=== PATIENT | female | born 1965 | race Caucasian/White ===

== ENCOUNTER → 2017-11-04 | Outpatient (CLI) | payer BC, MEDICARE | END | disposition home or self-care (01) | LOC: GMAL 10:35 | PROVIDERS: ATTEND Family Medicine | DX: Z00.01 Encounter for general adult medical examination with abnormal findings (principal) ==

== ENCOUNTER → 2017-11-13 | Outpatient (CLI) | payer BC, MEDICARE ==
--- NOTE | 2017-11-14 17:33 | US ---
EXAM DESCRIPTION: Thyroid CLINICAL HISTORY: 52 years, Female, THYROID NODULE COMPARISON: June 26, 2014 FINDINGS: Right lobe 6.0 x 2.3 x 1.8 cm. Left lobe 4.7 x 1.5 x 1.2 cm. Isthmus 2.3 mm. Very heterogeneous appearance of the thyroid gland. Well-circumscribed hyperechoic nodule upper right lobe 1.9 x 0.9 x 0.7 cm. The 2013 study showed a similar nodule actually measuring slightly larger IMPRESSION: Enlarged heterogeneous thyroid gland. Hyperechoic mass in the upper right lobe actually measures slightly smaller than 2014 Electronically signed by: Jona Chacon MD 11/14/2017 5:32 PM [facility]
== END | disposition home or self-care (01) ==
LOC: US 13:40
PROVIDERS: ATTEND Family Medicine
DX: E04.1 Nontoxic single thyroid nodule (principal)

== ENCOUNTER → 2017-11-18 | Outpatient (CLI) | payer BC, MEDICARE ==
--- NOTE | 2017-11-20 13:52 | MAM ---
EXAM DESCRIPTION: 3D Screening BILATERAL : Digital Mammography. CLINICAL HISTORY: 52 years Female SCREENING . No complaints. Remote family history of breast cancer. Postmenopausal. Currently on HRT. COMPARISON: 2-D digital screening bilateral studies 08/26/2016 and 05/16/2015. Report from prior examination also reviewed. TECHNIQUE: Bilateral CC and MLO projection full-field images, 3-D tomosynthesis digital mammographic technique. Also bilateral synthesized CC/ MLO full-field images. CAD not utilized. FINDINGS: The breast parenchymal density pattern is: Scattered areas of fibroglandular density. No skin thickening or nipple retraction bilateral axillary lymph nodes. Bilateral solitary microcalcifications. Small mass density stable in the upper outer quadrant of the right breast is most likely intramammary lymph node. No focal, stellate mass or density, focal asymmetry , and no suspicious microcalcifications bilaterally. Stable mammograms compared to prior studies taking into account differences in mammographic technique IMPRESSION: BI-RADS CATEGORY: 2 - BENIGN FINDINGS. FOLLOW UP: Routine digital bilateral screening, one year interval from November 2017. Written communication explaining the IMPRESSION and follow-up, will be mailed to the patient and referring health care provider. According to the [employer], yearly mammograms are recommended starting at age 40 and continuing as long as a woman is in good health. Any breast change noted on a breast self-exam should be reported promptly to the patient's healthcare provider. Breast MRI is recommended for women with an approximately 20-25% or greater lifetime risk of breast cancer, including women with a strong family history of breast or ovarian cancer and women who have been treated for Hodgkin's disease. A negative mammographic report should not delay tissue diagnosis in patients with significant clinical history or physical findings. Extremely dense breast tissue limits the sensitivity of digital mammography. Electronically signed by: Chris Ramesh MD 11/20/2017 1:51 PM [employer] CONTR[employer] SPECIALIST
== END | disposition home or self-care (01) ==
LOC: MAMMO 10:04
PROVIDERS: ATTEND Family Medicine
DX: Z12.31 Encounter for screening mammogram for malignant neoplasm of breast (principal)

== ENCOUNTER → 2018-01-19 | Outpatient (CLI) | payer BC, MEDICARE | LOC: GMAL 15:10 | PROVIDERS: ATTEND Family Medicine | DX: N30.00 Acute cystitis without hematuria (principal) ==

== ENCOUNTER → 2018-08-04 | Outpatient (CLI) | payer BC, MEDICARE ==
--- NOTE | 2018-08-04 11:50 | RAD ---
EXAM DESCRIPTION: Humerus,Right CLINICAL HISTORY: ARM PAIN COMPARISON: None. TECHNIQUE: 2 views right FINDINGS: I see no bone joint or soft tissue abnormality. IMPRESSION: Normal right humerus. Electronically signed by: Kaleb Cody MD 08/04/2018 11:49 AM CDT
--- NOTE | 2018-08-04 11:51 | RAD ---
EXAM DESCRIPTION: Facial Bones CLINICAL HISTORY: JAW PAIN COMPARISON: None. TECHNIQUE: 3 views FINDINGS: The sinuses as imaged are clear. The mandible and maxilla appear intact. No facial fracturing is detected. The nasal spine is intact. IMPRESSION: Normal facial series. Electronically signed by: Kaleb Cody MD 08/04/2018 11:50 AM CDT
--- NOTE | 2018-08-04 11:53 | RAD ---
EXAM DESCRIPTION: Mandible CLINICAL HISTORY: JAW PAIN COMPARISON: None. TECHNIQUE: 3 views FINDINGS: The mandible and maxilla as imaged are normal. No significant dental disease is detected. No fracturing is detected. IMPRESSION: Normal mandible. Electronically signed by: Kaleb Cody MD 08/04/2018 11:51 AM CDT
--- NOTE | 2018-08-04 11:54 | RAD ---
EXAM DESCRIPTION: Ribs,Right 3 Views CLINICAL HISTORY: RT RIB PAIN COMPARISON: None. TECHNIQUE: 3 views FINDINGS: No pneumothorax is detected. No rib fracturing is seen. Surgical clips are seen in the right upper quadrant. IMPRESSION: Normal right rib detail Electronically signed by: Kaleb Cody MD 08/04/2018 11:52 AM CDT
== END ==
LOC: RAD 11:06
PROVIDERS: ATTEND Physician Assistant
DX: R68.84 Jaw pain (principal); R07.89 Other chest pain; M79.621 Pain in right upper arm

== ENCOUNTER → 2018-09-17 | Outpatient (CLI) | payer BC, MEDICARE ==
--- NOTE | 2018-09-17 11:31 | US ---
US THYROID CLINICAL STATEMENT: THYROID NODULE. COMPARISON: None FINDINGS: Size right thyroid lobe: 6.3 x 2.4 x 1.4 cm Size left thyroid lobe: 4.2 x 1.2 x 1.2 cm Size isthmus: 0.22 cm Estimated total number of nodules greater than or equal to 1 cm: 1 Nodule 1: Size: 2.0 x 0.7 x 0.7 cm Location: Right Upper Composition: solid or almost completely solid: 2 points Echogenicity: hyperechoic: 1 point. Hypoechoic rim. Shape: wider than tall: 0 points. Margins: Smooth. Echogenic foci: None. Remainder of the right lobe is heterogeneous echoes. Similar echoes in the isthmus and left lobe. ACR Total Points: 3; ACR TI-RADS risk category: TR3 - mildly suspicious nodule. Soft tissue around the thyroid gland shows no distinct solid mass or cyst. No large calcification or parenchymal edema. No overlying skin changes. No abnormal vascularity. IMPRESSION: 1. Nodule 1: ACR TI-RADS 2017 Category 3. Recommend: Follow-up ultrasound in 1 year. And please see ACR TI-RADS 2017 recommendations below.* 2. Heterogeneous echoes in the remainder of the right lobe, left lobe and lingula. No other nodules cysts, calcifications, or abnormal vascularity. Soft tissue around the thyroid gland is unremarkable. *ACR TI-RADS 2017 Recommendations: TR1: No FNA or follow up TR2: No FNA or follow up TR3: FNA if >/= 2.5 cm, follow up if 1.5 - 2.4 cm in 1, 3, and 5 years TR4: FNA if >/= 1.5 cm, follow up if 1.0 - 1.4 cm in 1, 2, 3, and 5 years TR5: FNA if >/= 1.0 cm, follow up if 0.5 - 0.9 cm every year for 5 years ACR TI-RADS recommends that no more than two nodules with the highest ACR TI-RADS total point should be biopsied and no more than four nodules should be followed. Electronically signed by: Chris Ramesh MD 09/17/2018 11:30 AM CDT
== END ==
LOC: US 09:00
PROVIDERS: ATTEND Family Medicine
DX: E04.1 Nontoxic single thyroid nodule (principal)

== ENCOUNTER → 2018-11-18 | Outpatient (CLI) | payer BC, MEDICARE ==
--- NOTE | 2018-11-18 09:49 | CT ---
EXAM DESCRIPTION: Abdomen/Pelvis w/o Contrast: Computed Tomography. CLINICAL HISTORY: n30.00 COMPARISON: CT scan abdomen and pelvis with contrast 12/02/2008. TECHNIQUE: Spiral-axial scans at 2.5 x 2.5 mm intervals through the abdomen and pelvis. Coronal and sagittal 2.0mm reconstructions. No IV or oral contrast. Total Exam DLP: 812.27 mGy-cm. This exam was performed according to our departmental CT dose-optimization program which includes automated exposure control, adjustment of the mA and/or kV according to patient size and/or use of iterative reconstruction technique; to reduce radiation dose to as low as reasonably achievable (ALARA). FINDINGS: Kidneys and Ureters: 8 x 8 mm cortical nodule on the lateral mid left kidney not well seen on the prior study. Hounsfield density +14 - +20. Normal contour of the right renal cortex. 1.2 cm cyst mid right kidney with Hounsfield density +11. No radiodense stones in either kidney. No hydronephrosis or perinephric fluid. Ureters are negative. Pelvic Organs: No stones in the urinary bladder or bilateral UVJs. No free fluid. Vaginal cuff unremarkable. No adnexal mass. Lung and pleura bases: Minimal scarring bilaterally. Liver, spleen, stomach, and adrenal glands: Long axis of the right lobe is 20.3 cm. No focal lesions with smooth contour. Splenule inferior to the left hemidiaphragm. Stomach distended with food.. Pancreas, Gallbladder, Ducts: Surgical clips gallbladder fossa with no fluid. Pancreas negative. Duct not abnormally dilated. Aorta: Moderate atherosclerotic changes in the mid and distal with atherosclerotic calcifications in mild narrowing inferior to the renal artery origins. Also narrowing of the proximal left common iliac artery. No para-aortic mass. Small Bowel: Normal caliber but edema in the [place] of the terminal ileum and the ileocecal valve. Terminal Ileum/Cecum: Edema in the [place] of the terminal ileum and ileocecal valve. No significant fatty stranding or fascial thickening or free fluid. Similar appearance on the prior study. Proximal appendix slightly distended by bowel gas but no surrounding fatty stranding or fascial thickening. Colon: 1.3 cm circumscribed round mass posterior to the ascending colon. Stable since the prior study. Fecal material in the distal two thirds of the colon. Also in the ascending colon. Mild redundancy of the transverse colon. No obstruction. Mesentery: No free air or free fluid. No stranding or fascial thickening. No ascites. Spine and Bony Pelvis: Spondylosis L4-5 with disc space loss and gas in the disc space. Minimal depression of the superior L2 endplate which was not seen on the prior CT scan but was seen on prior lumbar MRI May 2014, with no marrow edema. Spondylosis at L4-5 is stable since the MRI scan. Abdominal Wall/Back Soft Tissues: Negative. IMPRESSION: 1. Small cortical nodule lateral cortex left kidney less than 1 cm with density between cyst and soft tissue. No adjacent fatty stranding or perirenal fluid. Consider bilateral renal ultrasound for follow-up. Cyst right kidney. No stones or hydronephrosis bilaterally and ureters are negative. 2. Splenule in the upper left quadrant underneath the left hemidiaphragm and nodule posterior to the ascending colon are stable since the prior study in 2008. Hepatomegaly is also stable. 3. Edema versus fatty thickening of the wall of the terminal ileum and ileocecal valve is stable since 2008. Electronically signed by: Chris Ramesh MD 11/18/2018 9:48 AM [employer] HOUSE INSPECTOR
== END ==
LOC: CT 10:37
PROVIDERS: ATTEND Physician Assistant
DX: N30.00 Acute cystitis without hematuria (principal)

== ENCOUNTER → 2018-11-26 | Outpatient (CLI) | payer BC, MEDICARE ==
--- NOTE | 2018-11-26 12:20 | US ---
EXAM DESCRIPTION: Renal: Ultrasound. CLINICAL HISTORY: 53 years Female ABDOMINAL PAIN COMPARISON: Bilateral renal arterial Doppler evaluation on the same visit. TECHNIQUE: Transcutaneous scanning: Two-dimensional and Doppler modes. FINDINGS: Right kidney measures 8.5 cm; mid-renal cortical thickness 9 mm. . Normal echogenicity. No hydronephrosis No echogenic stones. 8 mm cyst. Lobulated contour of the kidney with no perinephric fluid. Normal vascularity. Proximal ureter not visualized. Left kidney measures 10.4 cm; mid-renal cortical thicknessnumber. echogenicity. No hydronephrosis. No echogenic stones. 6 mm and 11 mm cysts. Lobulated contour of the kidney with no perinephric fluid. Normal vascularity.. Proximal ureter not visualized. Urinary bladder not visualized. Abdominal aorta: Proximal caliber 2.6 cm and mid caliber 1.9 cm. Distal aorta not well visualized. This is consistent with ectasia. IMPRESSION: 1. Bilateral cortical thinning of the kidneys with normal echogenicity except for bilateral cysts. Largest cyst is 11 mm in the left kidney. No hydronephrosis or perinephric fluid. No large calcifications. Proximal ureters not seen. 2. Ectasia of the proximal abdominal aorta. No further imaging follow-up is recommended. Electronically signed by: Chris Ramesh MD 11/26/2018 12:19 PM [facility]
== END ==
LOC: US 08:57
PROVIDERS: ATTEND Family Medicine
DX: R10.84 Generalized abdominal pain (principal); N28.1 Cyst of kidney, acquired; I77.819 Aortic ectasia, unspecified site

== ENCOUNTER → 2018-12-29 | Outpatient (CLI) | payer BC, MEDICARE | LOC: GMAL 11:29 | PROVIDERS: ATTEND Family Medicine | DX: Z00.00 Encounter for general adult medical examination without abnormal findings (principal) ==

== ENCOUNTER → 2019-01-06 | Outpatient (CLI) | payer BC, MEDICARE ==
--- NOTE | 2019-01-10 14:31 | MAM ---
EXAM DESCRIPTION: 3D Screening BILATERAL : Digital Mammography. CLINICAL HISTORY: 53 years Female SCREENING . No complaints or personal history of breast cancer. Remote family history of breast cancer. Childbirth. Hysterectomy. No HRT. Lifetime risk of developing breast cancer (Tyrer-Cuzick model)(%): 6.4. COMPARISON: Bilateral screening digital breast tomosynthesis 11/18/2017. TECHNIQUE: Bilateral CC and MLO projection full-field images, digital tomosynthesis mammographic technique. Bilateral digital 2-D full-field MLO images. CAD not available for tomosynthesis or 2-D images. FINDINGS: The breast parenchymal density pattern is: Almost entirely fatty. Scattered areas of fibroglandular density. Heterogeneously dense breast tissue, which may obscure small masses. Extremely dense breast tissue, which lowers the sensitivity of mammography. No skin thickening or nipple retraction. Bilateral solitary microcalcifications. Bilateral benign type axillary lymph nodes. No new focal, stellate mass or density, focal asymmetry , and no suspicious microcalcifications bilaterally IMPRESSION: Benign exam. BIRAD CATEGORY: 2 BENIGN FINDINGS. RECOMMENDATIONS: FOLLOW UP: Routine digital bilateral mammographic screening, one year interval from December 2018. Written communication explaining the IMPRESSION and follow-up, will be mailed to the patient and referring health care provider. According to the [employer], yearly mammograms are recommended starting at age 40 and continuing as long as a woman is in good health. Any breast change noted on a breast self-exam should be reported promptly to the patient's healthcare provider. Breast MRI is recommended for women with an approximately 20-25% or greater lifetime risk of breast cancer, including women with a strong family history of breast or ovarian cancer and women who have been treated for Hodgkin's disease. A negative mammographic report should not delay tissue diagnosis in patients with significant clinical history or physical findings. Extremely dense breast tissue limits the sensitivity of digital mammography. Electronically signed by: Chris Ramesh MD 01/10/2019 2:27 PM BULL BUCKER
== END ==
LOC: MAMMO 10:21
PROVIDERS: ATTEND Family Medicine
DX: Z12.31 Encounter for screening mammogram for malignant neoplasm of breast (principal)

== ENCOUNTER → 2020-05-22 | Outpatient (CLI) | payer BC, MEDICARE | LOC: GMAL 10:42 | PROVIDERS: ATTEND Family Medicine | DX: D51.3 Other dietary vitamin B12 deficiency anemia (principal); E03.9 Hypothyroidism, unspecified; E55.9 Vitamin D deficiency, unspecified ==